=== PATIENT | male | born 1990 | race African-American/Black ===

== ENCOUNTER 2017-01-27 08:31 | Emergency (ER) | payer BC, OTHER ==
[2017-01-27 08:39] VITALS: BP 145/79; PULSE 77; TEMP 98.5; BMI 33.9
--- NOTE | 2017-01-27 09:50 | PDOC ---
History of Present Illness - General Chief Complaint: Sore Throat Stated Complaint: THROAT PAIN Time Seen by Provider: 01/27/17 09:28 History Source: Patient Exam Limitations: No Limitations - History of Present Illness Initial Comments: 01/27/17 09:49 26 yr male with sore throat for 3 days states fever cough. Pt taking OTC lozengers. no med history. non smoker. Severity: mild Associated Symptoms: reports: cough, fever/chills Past History - Past Medical History Allergies/Adverse Reactions: Allergies Allergy/AdvReac Type Severity Reaction Status Date / Time No Known Allergies Allergy Verified 01/27/17 08:39 Home Medications: Ambulatory Orders Fluticasone Prop 0.05% Nasal [Flonase -] 1 - 2 spray NS DAILY #1 spray.pump Other medical history: denies - Psycho/Social/Smoking Cessation Hx Anxiety: No Suicidal Ideation: No Smoking History: Never smoked Have you smoked in the past 12 months: No Information on smoking cessation initiated: No Hx Alcohol Use: No Drug/Substance Use Hx: No Substance Use Type: None Review of Systems - Review of Systems Able to Perform ROS?: Yes Is the patient limited Green[place]ic proficient: No Constitutional: Yes: Symptoms Reported HEENTM: Yes: Symptoms Reported Respiratory: Yes: Symptoms reported *Physical Exam - Vital Signs Last Vital Signs Temp Pulse Resp BP Pulse Ox 98.5 F 77 18 145/79 99 01/27/17 08:37 01/27/17 08:37 01/27/17 08:37 01/27/17 08:37 01/27/17 08:37 - Physical Exam General Appearance: Yes: Nourished, Appropriately Dressed HEENT: positive: EOMI, [place], TMs Normal, Tonsillar Erythema, Nasal Congestion, Other (post nasal drip). negative: Pharyngeal Erythema, Tonsillar Exudate Neck: positive: Supple Respiratory/Chest: positive: Lungs Clear, Normal Breath Sounds. negative: Chest Tender, Wheezing Cardiovascular: positive: Regular Rhythm, Regular Rate Musculoskeletal: positive: Normal Inspection Extremity: positive: Normal Capillary Refill, Normal Inspection, Normal Range of Motion Integumentary: positive: Normal Color, Dry, Warm Neurologic: positive: manufacturing plant controller II-XII NML intact, Fully Oriented, Alert, Normal Mood/ Affect Medical Decision Making - Medical Decision Making 01/27/17 09:50 c: sore throat fever will r/o strep vitals stable clear voice 01/27/17 10:17 negative strep supportive care *DC/Admit/Observation/Transfer Diagnosis at time of Disposition: Viral pharyngitis, Post-nasal drip - Discharge Dispostion Disposition: HOME Condition at time of disposition: Good - Prescriptions Prescriptions: Fluticasone Prop 0.05% Nasal [Flonase -] 1 - 2 spray NS DAILY #1 spray.pump - Referrals Referrals: Tony Bey MD [Primary Care Provider] - Lacho Gonzalez MD [Staff Physician] - - Patient Instructions Additional Instructions: gargle with warm salt water 4-5 times a day use the Flonase spray as directed eat a tablespoon of Honey three times a day and before bed follow with ENT if any worsening symptoms make sure you drink pleanty of water and take motrin (advil, ibuprofen) 600- 800mg every 6hrs for pain or fever as needed - Post Discharge Activity Work/School Note: Back to Work
== END 2017-01-27 10:30 | disposition home or self-care (01) ==
LOC: JERFT 08:31
DX: J02.9 Acute pharyngitis, unspecified (principal); R09.82 Postnasal drip
CPT/HCPCS: 87070; 87077; 87430; 99281-25

== ENCOUNTER 2017-02-01 00:47 | Emergency (ER) | payer BC ==
--- NOTE | 2017-02-01 01:05 | PDOC ---
History of Present Illness - General History Source: Patient Exam Limitations: No Limitations - History of Present Illness Initial Comments: 02/01/17 02:13 The patient is a 26-year-old male with no significant past medical history, and presents to the emergency department with left ankle pain tonight. He reports he was playing basketball when he landed on another persons foot and heard a crack from his ankle. He reports the pain is located in the lateral aspect with associated swelling in the surrounding area. He states he walked on his ankle after the injury. The patient denies chest pain, shortness of breath, headache and dizziness. The patient denies fever, chills, nausea, vomit, diarrhea and constipation. The patient denies dysuria, frequency, urgency and hematuria. Allergies: NKDA Past Surgical History: None reported Social History: denies any toxic habits PCP: Dr. Tony Bey <Tiny Varela - Last Filed: 02/01/17 02:13> <Valerie Wen - Last Filed: 02/01/17 02:30> - General Chief Complaint: Injury Stated Complaint: ANKLE PAIN Time Seen by Provider: 02/01/17 00:57 Past History <Tiny Varela - Last Filed: 02/01/17 02:13> - Psycho/Social/Smoking Cessation Hx Anxiety: No Suicidal Ideation: No Smoking History: Never smoked Have you smoked in the past 12 months: No Information on smoking cessation initiated: No Hx Alcohol Use: No Drug/Substance Use Hx: No Substance Use Type: None <Valerie Wen - Last Filed: 02/01/17 02:30> - Past Medical History Allergies/Adverse Reactions: Allergies Allergy/AdvReac Type Severity Reaction Status Date / Time No Known Allergies Allergy Verified 02/01/17 01:01 Home Medications: Ambulatory Orders Fluticasone Prop 0.05% Nasal [Flonase -] 1 - 2 spray NS DAILY #1 spray.pump Review of Systems - Review of Systems Able to Perform ROS?: Yes Comments:: 02/01/17 02:13 CONSTITUTIONAL: Absent: fever, chills, diaphoresis, generalized weakness, malaise, loss of appetite HEENT: Absent: rhinorrhea, nasal congestion, throat pain, throat swelling, difficulty swallowing, mouth swelling, ear pain, eye pain, visual changes CARDIOVASCULAR: Absent: chest pain, syncope, palpitations, irregular heart rate, lightheadedness , peripheral edema RESPIRATORY: Absent: cough, shortness of breath, dyspnea with exertion, orthopnea, wheezing, stridor, hemoptysis GASTROINTESTINAL: Absent: abdominal pain, abdominal distension, nausea, vomiting, diarrhea, constipation, melena, hematochezia GENITOURINARY: Absent: dysuria, frequency, urgency, hesitancy, hematuria, flank pain, genital pain MUSCULOSKELETAL: Present: (+) left ankle pain and swelling Absent: myalgia SKIN: Absent: rash, itching, pallor HEMATOLOGIC/IMMUNOLOGIC: Absent: easy bleeding, easy bruising, lymphadenopathy, frequent infections ENDOCRINE: Absent: unexplained weight gain, unexplained weight loss, heat intolerance, cold intolerance NEUROLOGIC: Absent: headache, focal weakness or paresthesias, dizziness, unsteady gait, seizure, mental status changes, bladder or bowel incontinence PSYCHIATRIC: Absent: anxiety, depression, suicidal or homicidal ideation, hallucinations. <Tiny Varela - Last Filed: 02/01/17 02:13> *Physical Exam - Vital Signs Last Vital Signs Temp Pulse Resp BP Pulse Ox 98.2 F 82 20 119/68 99 02/01/17 01:02 02/01/17 01:02 02/01/17 01:02 02/01/17 01:02 02/01/17 01:02 - Physical Exam Comments: 02/01/17 02:13 GENERAL: Well developed, well nourished. Awake and alert. No acute distress. HEENT: Normocephalic, atraumatic. PERRLA, EOMI. No conjunctival pallor. Sclera are non- icteric. Moist mucous membranes. Oropharynx is clear. NECK: Supple. Full ROM. No JVD. Carotid pulses 2+ and symmetric, without bruits. No thyromegaly. No lymphadenopathy. CARDIOVASCULAR: Regular rate and rhythm. No murmurs, rubs, or gallops. Distal pulses are 2+ and symmetric. PULMONARY: No evidence of respiratory distress. Lungs clear to auscultation bilaterally. No wheezing, rales or rhonchi. ABDOMINAL: Soft. Non-tender. Non-distended. No rebound or guarding. No organomegaly. Normoactive bowel sounds. MUSCULOSKELETAL Normal range of motion at all joints. No bony deformities or tenderness. No CVA tenderness. EXTREMITIES: (+) Lateral left malleolar tenderness and surrounding swelling. No cyanosis. No clubbing. No calf tenderness. SKIN: Warm and dry. Normal capillary refill. No rashes. No jaundice. NEUROLOGICAL: Alert, awake, appropriate. Cranial nerves 2-12 intact. No deficits to light touch and temperature in face, upper extremities and lower extremities. No motor deficits in the in face, upper extremities and lower extremities. Normoreflexic in the upper and lower extremities. Normal speech. Toes are down- going bilaterally. Gait is normal without ataxia. PSYCHIATRIC: Cooperative. Good eye contact. Appropriate mood and affect. <Varela,Tiny - Last Filed: 02/01/17 02:13> - Vital Signs Last Vital Signs Temp Pulse Resp BP Pulse Ox 98.2 F 82 20 119/68 99 02/01/17 01:02 02/01/17 01:02 02/01/17 01:02 02/01/17 01:02 02/01/17 01:02 <Valerie Wen - Last Filed: 02/01/17 02:30> ED Treatment Course - RADIOLOGY Radiology Studies Ordered: Category Date Time Status ANKLE & FOOT-LEFT* [RAD] Stat Radiology 02/01/17 00:57 Ordered <Valerie Wen - Last Filed: 02/01/17 02:30> Medical Decision Making - Medical Decision Making 02/01/17 02:11 Report Date: 02/01/2017 01:05:00 Report Status: Preliminary === Begin of Report Content Referring Physician: Valerie Wen Patient Name: Enrique Butcher THIS IS A PRELIMINARY REPORT FROM [facility] IMAGES: 5 EXAM DATE AND TIME: 2017-02-01 01:05:18.0 EXAM: X-RAY LEFT ANKLE AND FOOT No acute fracture or dislocation. No radiopaque foreign body. Moderate soft tissue swelling over lateral malleolus. Hallux valgus deformity. Normal variant bipartite medial sesamoid. THIS DOCUMENT HAS BEEN ELECTRONICALLY SIGNED 02/01/17 02:28 Bulky shoemaker dressing applied. Pt will go home with crutches and he will follow with Ortho, Dr. Couch.. Home with crutches and WBAT; RICE precautions <Valerie Wen - Last Filed: 02/01/17 02:30> *DC/Admit/Observation/Transfer - Attestations Scribe Attestion: 02/01/17 02:14 Documentation prepared by Tiny Varela, acting as medical assistant per diem for Valerie Wen MD. <Tiny Varela - Last Filed: 02/01/17 02:13> - Discharge Dispostion Admit: No <Valerie Wen - Last Filed: 02/01/17 02:30> Diagnosis at time of Disposition: Ankle sprain - Discharge Dispostion Disposition: HOME Condition at time of disposition: Stable - Referrals Referrals: Tony Bey MD [Primary Care Provider] - Yuri Couch MD [Staff Physician] - - Patient Instructions Printed Discharge Instructions: DI for Ankle Sprain, How To Perform RICE (Rest , Ice, Compress, Elevate)
[2017-02-01 01:08] VITALS: BP 119/68; PULSE 82; TEMP 98.2; BMI 23.7
== END 2017-02-01 02:35 | disposition home or self-care (01) ==
LOC: JER 00:47
DX: S93.402A Sprain of unspecified ligament of left ankle, initial encounter (principal); W51.XXXA Accidental striking against or bumped into by another person, initial encounter; Y93.67 Activity, basketball; Y92.310 Basketball court as the place of occurrence of the external cause; Y99.8 Other external cause status
CPT/HCPCS: 73610-TC-LT; 73630-TC-LT; 99283-25

== ENCOUNTER 2021-05-03 12:58 | Emergency (ER) | payer BC, OTHER ==
[2021-05-03 13:28] VITALS: BP 151/84; PULSE 78; TEMP 98.4; BMI 35.8
[2021-05-03] MEDS ORDERED: DIPHTH,PERTUSS(ACELL),TET 0.5 ML DISP.SYRIN IM ONE ×2 (14:01→14:05)
== END 2021-05-03 14:32 | disposition home or self-care (01) ==
LOC: JERFT 12:58
PROC: 0H9FXZZ Drainage of Right Hand Skin, External Approach (ICD-10-PCS; principal; 2021-05-03)
PROC: 3E0234Z Introduction of Serum, Toxoid and Vaccine into Muscle, Percutaneous Approach (ICD-10-PCS; 2021-05-03)
DX: S60.10XA Contusion of unspecified finger with damage to nail, initial encounter (principal); W20.8XXA Other cause of strike by thrown, projected or falling object, initial encounter; Y92.89 Other specified places as the place of occurrence of the external cause
CPT/HCPCS: 73140-TC-RT-FY; 90471; 90715; 99284-25

== ENCOUNTER 2022-03-13 20:52 | Emergency (ER) | payer OTHER ==
[2022-03-13 21:01] VITALS: BP 144/79; PULSE 88; TEMP 98.3; BMI 38.2
== END 2022-03-13 22:16 | disposition home or self-care (01) ==
LOC: JERFT 20:52
DX: S80.861A Insect bite (nonvenomous), right lower leg, initial encounter (principal); S80.862A Insect bite (nonvenomous), left lower leg, initial encounter; W57.XXXA Bitten or stung by nonvenomous insect and other nonvenomous arthropods, initial encounter
CPT/HCPCS: 99283-25

== ENCOUNTER 2023-03-11 11:19 | Emergency (ER) | payer OTHER ==
[2023-03-11 11:32] VITALS: BP 128/58; PULSE 81; RESP 18; TEMP 98.6; BMI 38.5
== END 2023-03-11 13:55 | disposition home or self-care (01) ==
LOC: JERFT 11:19
DX: R09.81 Nasal congestion (principal); R05.9 Cough, unspecified; H10.31 Unspecified acute conjunctivitis, right eye; J32.9 Chronic sinusitis, unspecified
CPT/HCPCS: 87651; 99283-25